=== PATIENT | male | born 1940 | race Caucasian/White ===

== ENCOUNTER 2017-01-01 03:41 | Emergency (ER) | payer MEDICARE ==
[~2017-01-01] VITALS: Ht 182.9 cm; Wt 97.5 kg
[2017-01-01 04:30] VITALS: BP 130/85
== END 2017-01-01 05:20 | disposition home or self-care (01) ==
LOC: ER 03:41
DX: T78.40XA Allergy, unspecified, initial encounter (principal); E11.9 Type 2 diabetes mellitus without complications; I10 Essential (primary) hypertension; F17.210 Nicotine dependence, cigarettes, uncomplicated; Z88.8 Allergy status to other drugs, medicaments and biological substances

== ENCOUNTER 2019-04-12 21:55 | Inpatient (IN) | payer MEDICARE, OTHER ==
[~2019-04-12] VITALS: Ht 185.4 cm; Wt 84.7 kg
[~2019-04-12 21:55] MED LIST: BENA20TA14 PO; GABA-339 PO; GLYB5TAB8 PO; METF-370 PO; METO-159 PO; NORT25CA PO; OMEP20TA PO
[2019-04-12 23:01] LABS: Basophils # (auto) 0.2 uL; Eosinophils # (auto) 0.1 uL; Eosinophils % (auto) 0.6 % (0.0-7.0); Hematocrit 39.2 % (41.0-53.0); Hemoglobin 12.9 g/dL (13.5-17.5); Lymphocytes # (auto) 1.7 uL; Lymphocytes % (auto) 15.6 % (10.0-50.0); Mean Corpuscular Hemoglobin 27.8 pg (28.0-32.0); Mean Corpuscular Hgb Conc. 32.8 g/dL (32.0-36.0); Mean Corpuscular Volume 84.8 fL (80.0-100.0); Monocytes # (auto) 0.6 uL; Monocytes % (auto) 5.9 % (0.0-12.0); Neutrophils # (auto) 8.4 uL; Neutrophils % (auto) 75.9 % (37.0-80.0); Platelet Count (auto) 283 10^3/uL (140-450); Red Blood Cells 4.63 10^6/uL (4.5-5.90); Red Cell Distribution Width 14.9 % (11.8-14.3); White Blood Cell 11.1 10^3/uL (4.4-10.8)
[2019-04-12 23:34] LABS: Albumin 2.8 g/dL (3.4-5.0); Anion Gap 6 (5-15); Blood Urea Nitrogen 20 mg/dL (7-18); Carbon Dioxide 27 mmol/L (21-32); Chloride 105 mmol/L (98-107); Potassium 4.1 mmol/L (3.5-5.1); Sodium 138 mmol/L (136-145)
[2019-04-12 23:42] LABS: Alanine Aminotransferase 46 U/L (16-61); Alkaline Phosphatase 83 U/L (45-117); Aspartate Aminotransferase 30 U/L (15-37); BUN/Creatinine Ratio 21.1; Bilirubin, Total 0.6 mg/dL (0.2-1.0); GFR African American 99 mL/min; GFR Non-African American 81 mL/min; Glucose 145 mg/dL (74-106); Total Protein 7.3 g/dL (6.4-8.2)
[2019-04-13] MEDS ORDERED: DEXTROSE (50%) 50ML SYRG IV PRN (10:30)
[2019-04-13] MEDS ORDERED: SODIUM CHLORIDE 0.9% 1,000 ML IV ONE (10:30)
[2019-04-13] MEDS ORDERED: ONDANSETRON HCL 4 MG/2 ML VIAL IV PRN (10:30)
[2019-04-13] MEDS ORDERED: NITROGLYCERIN 0.4 MG SL TAB SL PRN (10:30)
[2019-04-13] MEDS ORDERED: ACETAMINOPHEN 500 MG TAB PO PRN (10:30)
[2019-04-13] MEDS ORDERED: MORPHINE SULF INJ 2 MG/ML SYRINGE 1ML IV PRN (10:30)
[2019-04-13 10:55] LABS: Urine Bacteria NONE SEEN /hpf (None Seen); Urine Blood Negative /uL (Negative); Urine Mucus FEW (None Seen); Urine Specific Gravity 1.029 (1.001-1.035); Urine WBC 13 /hpf (0 - 3)
[2019-04-13] MEDS ORDERED: ASPirin-EC 81 mg tab PO ONE (11:00)
[2019-04-13] MEDS ORDERED: LISINOPRIL 5 MG TAB PO ONE (11:00)
[2019-04-13] MEDS ORDERED: CLOPIDOGREL BISULFATE 75 MG TAB PO ONE (11:00)
[2019-04-13] MEDS ORDERED: FAMOTIDINE 20 MG TAB PO ONE (11:00)
[2019-04-13] MEDS ORDERED: METOPROLOL TARTRATE 25 MG TAB PO ONE (11:00)
[2019-04-13] MEDS: InsuLIN REG 1unit/0.01ml Soln (100units/ml) SC SCH ×3 (11:30→21:37)
[2019-04-13] MEDS: ACCU-CHEK COMFORT CURVE STRIP VI SCH ×3 (11:32→21:37)
[2019-04-13] MEDS: cefTRIAXone 1GM/50ML D5W 50 ML IV SCH (11:48)
[2019-04-13] MEDS: SILDENAFIL CITRATE 20 MG TAB PO SCH ×2 (14:17→19:50)
--- NOTE | 2019-04-13 17:00 | NUR ---
Telemetry admit from ER JERSON HOPSON admitted to Telemetry unit after SBAR received. Patient oriented to ROMERO STARK RN primary RN, unit, room, bed, and unit policies regarding patient care and visiting hours. Sitter is at bedside for 24 hour monitoring and care. Patient now on continuous telemetry monitoring, tele box # 65 and telemetry reading on arrival to unit is normal sinus rhythm at 98 bpm. Patient weighed by bed scale and encouraged to call if they need something. All questions and concerns addressed, patient verbalized understanding to the best of his ability.
[2019-04-13 17:25] VITALS: BP 127/77
--- NOTE | 2019-04-13 19:50 | NUR ---
RECEIVED PATIENT FROM DAY SHIFT RN. PATIENT RESTING IN BED. NO S/S OF DISTRESS NOTED. DENIED PAIN FOR NOW. REORIENTED PATIENT FOR SITUATION. ORAL MEDICATION GIVEN ORDERED. PATIENT SWALLOWED WELL. NO S/S OF ASPIRATION NOTED. REPOSITIONED PATIENT TO COMFORT. POC INSTRUCTED AND ENCOURAGED PATIENT TO CALL FOR SOLAR FIELD INSTALLATION CREW MEMBER IF NEEDED. BED IN LOWEST POSITION WITH SIDE RAILS UP X 2. CALL REID WITHIN REACH. ALARM ON. SITTER AT BEDSIDE FOR SAFETY. CONTINUE TO MONITOR FOR CHANGES Q1H AND PRN.
--- NOTE | 2019-04-13 19:53 | NUR ---
MRSA SWAB COLLECTED AND SENT. CONTINUE TO MONITOR.
[2019-04-13 21:00] VITALS: BP 107/67
[2019-04-13] MEDS: METOPROLOL TARTRATE 25 MG TAB PO SCH (21:37)
--- NOTE | 2019-04-13 21:38 | NUR ---
ACCU-CHECK, BS 86. NO COVERAGE. ENCOURAGED PATIENT TO DRINK JUICY TO INCREASE BS. CONTINUE TO MONITOR.
[2019-04-13 23:50] VITALS: BP 113/66
--- NOTE | 2019-04-14 02:22 | NUR ---
PATIENT SLEEPING. NO S/S OF DISTRESS NOTED. CONTINUE CARE.
[2019-04-14 04:49] VITALS: BP 107/70
[2019-04-14 06:07] LABS: Basophils # (auto) 0.1 uL; Basophils % (auto) 0.8 % (0.0-2.0); Eosinophils # (auto) 0.2 uL; Eosinophils % (auto) 2.1 % (0.0-7.0); Hematocrit 36.3 % (41.0-53.0); Hemoglobin 12.1 g/dL (13.5-17.5); Lymphocytes # (auto) 1.5 uL; Lymphocytes % (auto) 19.6 % (10.0-50.0); Mean Corpuscular Hemoglobin 28.3 pg (28.0-32.0); Mean Corpuscular Hgb Conc. 33.4 g/dL (32.0-36.0); Mean Corpuscular Volume 84.9 fL (80.0-100.0); Monocytes # (auto) 0.6 uL; Monocytes % (auto) 7.4 % (0.0-12.0); Neutrophils # (auto) 5.4 uL; Neutrophils % (auto) 70.1 % (37.0-80.0); Platelet Count (auto) 266 10^3/uL (140-450); Red Blood Cells 4.27 10^6/uL (4.5-5.90); Red Cell Distribution Width 15.3 % (11.8-14.3); White Blood Cell 7.8 10^3/uL (4.4-10.8)
[2019-04-14 06:42] LABS: Potassium 3.9 mmol/L (3.5-5.1)
[2019-04-14] MEDS: InsuLIN REG 1unit/0.01ml Soln (100units/ml) SC SCH ×4 (06:42→22:00)
[2019-04-14] MEDS: ACCU-CHEK COMFORT CURVE STRIP VI SCH ×4 (06:42→22:00)
--- NOTE | 2019-04-14 06:43 | NUR ---
ACCU-CHECK, BS 124. NO COVERAGE. CONTINUE TO MONITOR.
[2019-04-14 06:48] LABS: BUN/Creatinine Ratio 17.1; Calcium 8.7 mg/dL (8.5-10.1)
--- NOTE | 2019-04-14 08:00 | NUR ---
REPORT RECEIVED FROM SHARLA GONZALEZ.
--- NOTE | 2019-04-14 08:15 | NUR ---
Opening Shift Note Assumed care of patient, awake and alert x3. No S/S of distress/SOB or pain. Instructed on POC and to call for assist PRN, will continue to monitor. Bed locked in the lowest position. Bed rails up x2. Call light in reach. Sitter at the bedside for safety.
[2019-04-14] MEDS: SILDENAFIL CITRATE 20 MG TAB PO SCH ×3 (08:51→22:26)
[2019-04-14] MEDS: cefTRIAXone 1GM/50ML D5W 50 ML IV SCH ×2 (08:51→08:52)
[2019-04-14 09:05] VITALS: BP 127/72
[2019-04-14] MEDS: ASPirin-EC 81 mg tab PO SCH (10:55)
[2019-04-14] MEDS: LISINOPRIL 5 MG TAB PO SCH (10:56)
[2019-04-14] MEDS: CLOPIDOGREL BISULFATE 75 MG TAB PO SCH (10:56)
[2019-04-14] MEDS: FAMOTIDINE 20 MG TAB PO SCH (10:56)
[2019-04-14] MEDS: METOPROLOL TARTRATE 25 MG TAB PO SCH ×2 (10:57→22:00)
--- NOTE | 2019-04-14 11:45 | NUR ---
PATIENTS WRIST BAND NOT SCANNING. BLOOD GLUCOSE OF 163. MEDICATED PER MD ORDER.
[2019-04-14] MEDS: HYDROcodone-ACET 5/325MG TAB PO PRN (11:56)
[2019-04-14 13:00] VITALS: BP 102/69
--- NOTE | 2019-04-14 15:47 | NUR ---
MED REQUEST PATIENT REQUESTING MEDICATION OF BACLOFEN. PATIENT STATES, "I WAS GETTING BACLOFEN BEFORE AND THAT REALLY HELPED WITH MY CHRONIC BACK PAIN. CAN YOU ASK THE DOCTOR IF I CAN GET AN ORDER FOR THAT." DR. GONZALEZ AWARE OF PATIENTS REQUEST. NEW ORDER RECEIVED. ORDER READ BACK AND VERIFIED.
[2019-04-14] MEDS: BACLOFEN 10 MG TAB PO PRN (16:55)
[2019-04-14] MEDS: Ensure HIGH Protein Chocolate 8oz Bottle PO SCH (16:57)
[2019-04-14 17:00] VITALS: BP 119/79
--- NOTE | 2019-04-14 19:00 | NUR ---
Closing Note Patient is awake and alert x3. No S/S of distress/SOB or pain. Bed locked in the lowest position. Bed rails up x2. Call light in reach. Sitter at the bedside for safety. Endorsed care to night nurse.
[2019-04-14 20:00] VITALS: BP 110/62
[2019-04-14 22:00] VITALS: BP 110/74
--- NOTE | 2019-04-15 02:00 | NUR ---
PT TURNING SELF; AND PERIODICALLY TRYING TO KICK STAFF. INTERMITTENT PERIODS OF CALM WHEN PT SPORADICALLY FALLS ASLEEP;VITAL SIGNS STABLE; SITTER AT BEDSIDE SIDERAILS UP.
[2019-04-15 05:00] VITALS: BP 137/78
[2019-04-15] MEDS: InsuLIN REG 1unit/0.01ml Soln (100units/ml) SC SCH ×4 (06:47→22:07)
[2019-04-15] MEDS: ACCU-CHEK COMFORT CURVE STRIP VI SCH ×4 (06:47→22:08)
[2019-04-15 07:20] LABS: Basophils # (auto) 0.1 uL; Basophils % (auto) 1.7 % (0.0-2.0); Eosinophils # (auto) 0.1 uL; Eosinophils % (auto) 0.8 % (0.0-7.0); Hematocrit 37.9 % (41.0-53.0); Hemoglobin 12.8 g/dL (13.5-17.5); Lymphocytes # (auto) 1.3 uL; Lymphocytes % (auto) 16.3 % (10.0-50.0); Mean Corpuscular Hemoglobin 28.5 pg (28.0-32.0); Mean Corpuscular Hgb Conc. 33.7 g/dL (32.0-36.0); Mean Corpuscular Volume 84.6 fL (80.0-100.0); Monocytes # (auto) 0.5 uL; Monocytes % (auto) 6.7 % (0.0-12.0); Neutrophils # (auto) 6.1 uL; Neutrophils % (auto) 74.5 % (37.0-80.0); Nucleated Red Blood Cells % 0.1 %; Platelet Count (auto) 278 10^3/uL (140-450); Red Blood Cells 4.47 10^6/uL (4.5-5.90); Red Cell Distribution Width 15.1 % (11.8-14.3); White Blood Cell 8.2 10^3/uL (4.4-10.8)
[2019-04-15 07:39] LABS: Potassium 3.7 mmol/L (3.5-5.1)
[2019-04-15 07:46] LABS: BUN/Creatinine Ratio 17.5; Calcium 8.9 mg/dL (8.5-10.1)
[2019-04-15 09:00] VITALS: BP 141/81
[2019-04-15] MEDS: HYDROcodone-ACET 5/325MG TAB PO PRN (09:02)
[2019-04-15] MEDS: cefTRIAXone 1GM/50ML D5W 50 ML IV SCH (09:02)
[2019-04-15] MEDS: SILDENAFIL CITRATE 20 MG TAB PO SCH ×3 (09:02→20:47)
[2019-04-15] MEDS: FAMOTIDINE 20 MG TAB PO SCH (09:03)
[2019-04-15] MEDS: ASPirin-EC 81 mg tab PO SCH (09:04)
[2019-04-15] MEDS: METOPROLOL TARTRATE 25 MG TAB PO SCH ×2 (09:04→22:08)
[2019-04-15] MEDS: CLOPIDOGREL BISULFATE 75 MG TAB PO SCH (09:04)
[2019-04-15] MEDS: LISINOPRIL 5 MG TAB PO SCH (09:05)
[2019-04-15] MEDS: Ensure HIGH Protein Chocolate 8oz Bottle PO SCH ×3 (09:07→18:26)
[2019-04-15 13:00] VITALS: BP 110/68
[2019-04-15 17:00] VITALS: BP 107/67
--- NOTE | 2019-04-15 19:13 | NUR ---
Opening Shift Note Assumed care of patient, awake and alert x4. No S/S of distress/SOB or pain. Call light is within reach, side rails up x2, bed is in lowest position. Sitter is at bedside for safety. Instructed on POC and to call for assist PRN, will continue to monitor for changes Q1hr and PRN.
[2019-04-15 21:52] VITALS: BP 111/78
[2019-04-16] VITALS (7 sets, daily range): BP systolic 102–141; BP diastolic 62–87
[2019-04-16] MEDS: InsuLIN REG 1unit/0.01ml Soln (100units/ml) SC SCH ×4 (06:26→21:27)
[2019-04-16] MEDS: ACCU-CHEK COMFORT CURVE STRIP VI SCH ×4 (06:26→21:27)
[2019-04-16 06:38] LABS: Basophils # (auto) 0.1 uL; Basophils % (auto) 1.8 % (0.0-2.0); Eosinophils # (auto) 0.1 uL; Hematocrit 37.6 % (41.0-53.0); Hemoglobin 12.5 g/dL (13.5-17.5); Lymphocytes # (auto) 1.3 uL; Mean Corpuscular Hemoglobin 28.4 pg (28.0-32.0); Mean Corpuscular Hgb Conc. 33.4 g/dL (32.0-36.0); Mean Corpuscular Volume 85.2 fL (80.0-100.0); Monocytes # (auto) 0.6 uL; Monocytes % (auto) 7.3 % (0.0-12.0); Neutrophils % (auto) 73.9 % (37.0-80.0); Platelet Count (auto) 292 10^3/uL (140-450); Red Blood Cells 4.41 10^6/uL (4.5-5.90); Red Cell Distribution Width 15.3 % (11.8-14.3); White Blood Cell 8.1 10^3/uL (4.4-10.8)
[2019-04-16 07:13] LABS: BUN/Creatinine Ratio 17.3; Calcium 8.7 mg/dL (8.5-10.1); Potassium 3.7 mmol/L (3.5-5.1)
--- NOTE | 2019-04-16 07:15 | NUR ---
Endorsed care to Fausto GONZALEZ.
[2019-04-16] MEDS: cefTRIAXone 1GM/50ML D5W 50 ML IV SCH (11:19)
[2019-04-16] MEDS: CLOPIDOGREL BISULFATE 75 MG TAB PO SCH (11:19)
[2019-04-16] MEDS: SILDENAFIL CITRATE 20 MG TAB PO SCH ×3 (11:19→21:26)
[2019-04-16] MEDS: FAMOTIDINE 20 MG TAB PO SCH (11:20)
[2019-04-16] MEDS: METOPROLOL TARTRATE 25 MG TAB PO SCH ×2 (11:20→21:38)
[2019-04-16] MEDS: LISINOPRIL 5 MG TAB PO SCH (11:21)
[2019-04-16] MEDS: ASPirin-EC 81 mg tab PO SCH (11:21)
[2019-04-16] MEDS: Ensure HIGH Protein Chocolate 8oz Bottle PO SCH ×3 (11:22→18:24)
[2019-04-16] MEDS: BACLOFEN 10 MG TAB PO PRN (21:27)
[2019-04-17] VITALS (7 sets, daily range): BP systolic 103–133; BP diastolic 63–91
[2019-04-17] MEDS: InsuLIN REG 1unit/0.01ml Soln (100units/ml) SC SCH ×3 (06:15→17:55)
[2019-04-17] MEDS: ACCU-CHEK COMFORT CURVE STRIP VI SCH ×3 (06:15→17:56)
[2019-04-17 07:54] LABS: Basophils # (auto) 0.1 uL; Basophils % (auto) 0.5 % (0.0-2.0); Eosinophils # (auto) 0.1 uL; Eosinophils % (auto) 0.5 % (0.0-7.0); Hematocrit 38.5 % (41.0-53.0); Hemoglobin 12.8 g/dL (13.5-17.5); Lymphocytes % (auto) 8.4 % (10.0-50.0); Mean Corpuscular Hemoglobin 28.6 pg (28.0-32.0); Mean Corpuscular Hgb Conc. 33.2 g/dL (32.0-36.0); Mean Corpuscular Volume 86.1 fL (80.0-100.0); Monocytes # (auto) 0.7 uL; Monocytes % (auto) 6.4 % (0.0-12.0); Neutrophils # (auto) 9.7 uL; Neutrophils % (auto) 84.2 % (37.0-80.0); Platelet Count (auto) 300 10^3/uL (140-450); Red Blood Cells 4.47 10^6/uL (4.5-5.90); Red Cell Distribution Width 15.9 % (11.8-14.3); White Blood Cell 11.6 10^3/uL (4.4-10.8)
[2019-04-17 08:01] LABS: Albumin 2.7 g/dL (3.4-5.0); BUN/Creatinine Ratio 16.3; Calcium 8.9 mg/dL (8.5-10.1); Potassium 3.9 mmol/L (3.5-5.1)
[2019-04-17 08:04] LABS: Bilirubin, Total 0.7 mg/dL (0.2-1.0); Total Protein 7.3 g/dL (6.4-8.2)
[2019-04-17] MEDS: SILDENAFIL CITRATE 20 MG TAB PO SCH ×3 (08:17→20:05)
[2019-04-17] MEDS: Ensure HIGH Protein Chocolate 8oz Bottle PO SCH ×3 (08:17→17:38)
[2019-04-17] MEDS: cefTRIAXone 1GM/50ML D5W 50 ML IV SCH (08:17)
[2019-04-17] MEDS: CLOPIDOGREL BISULFATE 75 MG TAB PO SCH (09:30)
[2019-04-17] MEDS: METOPROLOL TARTRATE 25 MG TAB PO SCH (09:30)
[2019-04-17] MEDS: LISINOPRIL 5 MG TAB PO SCH (09:30)
[2019-04-17] MEDS: FAMOTIDINE 20 MG TAB PO SCH (09:30)
[2019-04-17] MEDS: ASPirin-EC 81 mg tab PO SCH (09:31)
--- NOTE | 2019-04-17 09:45 | NUR ---
Assessment Pt is a 78 year old confused and disoriented male. Pt was oriented to Place, date, Name, and President but couldn't remember where he lived or his 's name. Pt was admitted due to a fall and a bad hemorrhage that resulted in a stroke. Pt was unable to answer basic questions about DME, Primary care physician, and functioning level. ELIGIO found out from that pt lived at [facility] prior to admit. ELIGIO called [facility] and talked with staff about the pt. ELIGIO found out that pt had been at [facility] for 10 days for Rehab and PT. Pt has a delivery man who is the pt's POA and can be contacted at [phone]. ELIGIO called Анна and asked questions about the pt. Анна stated that prior to living at [facility], pt lived with her and she provided care giving services including cooking, cleaning, etc. JOYCE stated that she decided that pt will go back to [facility] to complete rehab. JOYCE informed that pt has had signs of dementia for a while but has not had a successful outcome when trying to get him in for an apt with his primary dr. Pt has a Primary doctor at the [facility] in [place]. JOYCE stated that she can give the pt a ride, if need be. Pt will be d/c to [facility] per JOYCE's decision. Addendum: 04/17/19 at 0958 by OPAL GARCÍA SS Amended: Links added.
--- NOTE | 2019-04-17 17:05 | NUR ---
Discharge planning per consult has order for SNF placement. Referral faxed to [facility] as patient was a patient there previously, follow up call with Liliana advised that patient is able to return and will be going to room [address] Tee. [facility] and they are scheduled to pick the patient up at 10pm. Nurse advised of dc plan. Addendum: 04/18/19 at 0829 by GURJIT LLOYD Amended: Links added.
--- NOTE | 2019-04-17 19:30 | NUR ---
OPENING SHIFT NOTE RECEIVED REPORT FROM DAYSHIFT RN. PATIENT LYING IN BED. NO S/S OF DISTRESS OR SOB. NO PAIN NOTED OR REPORTED. PATIENT A/O X3, BEDREST. PATIENT UPDATED ON POC AND PENDING TRANSFER TO [facility], VERBALIZED UNDERSTANDING. BED LOCKED IN LOW POSITION, CALL LIGHT WITHIN REACH. WILL CONTINUE TO MONITOR PATIENT Q1HR AND PRN.
--- NOTE | 2019-04-17 22:10 | NUR ---
PATIENT DISCHARGED TO [facility] Discharge instructions given as ordered. All questions and concerns addressed. Patient verbalized understanding. IV removed with catheter intact, pressure dressing applied, TELE MONITOR SENT BACK TO [employer] [facility]INT[facility] ROOM. Medication reconciliation form completed and copy given to patient. Telemetry unit returned to ICU. Report given to DONA at [facility]. Patient transported with all personal belongings. No distress noted at time of departure.
== END 2019-04-17 22:10 | DRG 91 ==
LOC: ER 21:55 → TELE 21:56 → TELE-WESTW 04-13 16:56
PROVIDERS: ADMIT Nurse Practitioner Acute Care; ATTEND Internal Medicine
DX: G92 Toxic encephalopathy (principal); N17.0 Acute kidney failure with tubular necrosis; E44.0 Moderate protein-calorie malnutrition; I50.22 Chronic systolic (congestive) heart failure; F23 Brief psychotic disorder; I13.0 Hypertensive heart and chronic kidney disease with heart failure and stage 1 through stage 4 chronic kidney disease, or unspecified chronic kidney disease; I69.354 Hemiplegia and hemiparesis following cerebral infarction affecting left non-dominant side; N39.0 Urinary tract infection, site not specified; I27.20 Pulmonary hypertension, unspecified; E78.5 Hyperlipidemia, unspecified; I25.10 Atherosclerotic heart disease of native coronary artery without angina pectoris; Z95.5 Presence of coronary angioplasty implant and graft; D72.829 Elevated white blood cell count, unspecified; E11.21 Type 2 diabetes mellitus with diabetic nephropathy; E11.40 Type 2 diabetes mellitus with diabetic neuropathy, unspecified; E11.22 Type 2 diabetes mellitus with diabetic chronic kidney disease; N18.9 Chronic kidney disease, unspecified; Z88.8 Allergy status to other drugs, medicaments and biological substances; Z68.24 Body mass index [BMI] 24.0-24.9, adult; D63.8 Anemia in other chronic diseases classified elsewhere; I25.2 Old myocardial infarction; I27.21 Secondary pulmonary arterial hypertension; I69.393 Ataxia following cerebral infarction; K21.9 Gastro-esophageal reflux disease without esophagitis; M25.78 Osteophyte, vertebrae; M46.90 Unspecified inflammatory spondylopathy, site unspecified; M48.02 Spinal stenosis, cervical region; M53.82 Other specified dorsopathies, cervical region; Y93.89 Activity, other specified; W06.XXXA Fall from bed, initial encounter; Y92.003 Bedroom of unspecified non-institutional (private) residence as the place of occurrence of the external cause; Y99.8 Other external cause status; S16.1XXA Strain of muscle, fascia and tendon at neck level, initial encounter; S70.01XA Contusion of right hip, initial encounter; Z79.899 Other long term (current) drug therapy; Z82.0 Family history of epilepsy and other diseases of the nervous system
CPT/HCPCS: 36415; 70450; 72125; 73502; 80048; 80053; 81001; 82533; 82962; 83036; 84443; 84484; 85025; 87081; 96361; 96365; 97110; 97163; 97530; G0378; J0696; J1815; J2405

== ENCOUNTER 2019-04-18 14:10 | Inpatient (IN) | payer MEDICARE, OTHER ==
[~2019-04-18] VITALS: Ht 182.9 cm; Wt 89.6 kg
[2019-04-18 14:46] LABS: Basophils # (auto) 0.1 uL; Basophils % (auto) 1.4 % (0.0-2.0); Eosinophils # (auto) 0.1 uL; Eosinophils % (auto) 0.5 % (0.0-7.0); Hematocrit 38.1 % (41.0-53.0); Hemoglobin 12.8 g/dL (13.5-17.5); Lymphocytes # (auto) 1.2 uL; Lymphocytes % (auto) 11.7 % (10.0-50.0); Mean Corpuscular Hemoglobin 28.4 pg (28.0-32.0); Mean Corpuscular Hgb Conc. 33.7 g/dL (32.0-36.0); Mean Corpuscular Volume 84.2 fL (80.0-100.0); Monocytes # (auto) 0.7 uL; Monocytes % (auto) 6.7 % (0.0-12.0); Neutrophils # (auto) 8.4 uL; Neutrophils % (auto) 79.7 % (37.0-80.0); Platelet Count (auto) 306 10^3/uL (140-450); Red Blood Cells 4.53 10^6/uL (4.5-5.90); Red Cell Distribution Width 15.1 % (11.8-14.3); White Blood Cell 10.6 10^3/uL (4.4-10.8)
[2019-04-18 15:06] LABS: Alanine Aminotransferase 19 U/L (16-61); Albumin 2.5 g/dL (3.4-5.0); Anion Gap 11 (5-15); Aspartate Aminotransferase 11 U/L (15-37); BUN/Creatinine Ratio 22.7; Blood Urea Nitrogen 17 mg/dL (7-18); Calcium 8.8 mg/dL (8.5-10.1); Carbon Dioxide 21 mmol/L (21-32); Chloride 103 mmol/L (98-107); GFR African American 130 mL/min; GFR Non-African American 107 mL/min; Glucose 210 mg/dL (74-106); Magnesium 1.6 mg/dL (1.6-2.6); Potassium 3.9 mmol/L (3.5-5.1); Sodium 135 mmol/L (136-145)
[2019-04-18 15:11] LABS: Alkaline Phosphatase 85 U/L (45-117); Bilirubin, Total 0.7 mg/dL (0.2-1.0); Total Protein 7.1 g/dL (6.4-8.2)
[2019-04-18 20:20] LABS: Urine Bacteria NONE SEEN /hpf (None Seen); Urine Blood 3+ /uL (Negative); Urine Mucus FEW (None Seen); Urine Specific Gravity 1.027 (1.001-1.035); Urine WBC 13 /hpf (0 - 3)
[2019-04-18] MEDS ORDERED: DEXTROSE (50%) 50ML SYRG IV PRN (21:00)
[2019-04-18] MEDS ORDERED: MORPHINE SULF INJ 2 MG/ML SYRINGE 1ML IV PRN (21:00)
[2019-04-18] MEDS ORDERED: NITROGLYCERIN 0.4 MG SL TAB SL PRN (21:00)
[2019-04-18] MEDS ORDERED: cefTRIAXone 1GM/50ML D5W 50 ML IV ONE (21:00)
[2019-04-18] MEDS: SODIUM CHLORIDE 0.9% 1,000 ML IV SCH (21:18)
[2019-04-18] MEDS: InsuLIN REG 1unit/0.01ml Soln (100units/ml) SC SCH (22:00)
[2019-04-18] MEDS: FAMOTIDINE 20 MG TAB PO SCH (22:28)
[2019-04-18] MEDS: ACCU-CHEK COMFORT CURVE STRIP VI SCH (22:28)
[2019-04-18] MEDS: ATORVASTATIN 20 MG TAB PO SCH (22:28)
[2019-04-19] VITALS (7 sets, daily range): BP systolic 120–134; BP diastolic 69–92
--- NOTE | 2019-04-19 00:34 | NUR ---
Telemetry admit from ER JERSON HOPSON admitted to Telemetry unit after SBAR received. Patient oriented to Wei Regalado, primary RN, unit, room, bed, and unit policies regarding patient care and visiting hours. Patient now on continuous telemetry monitoring, tele box # [32] and telemetry reading on arrival to unit is [SR 92]. Patient weighed by bedscale and encouraged to call if they need something. All questions and concerns addressed, patient verbalized understanding. Note: PATIENT CONFUSED. ORIENTED PATIENT TIME, PLACE, AND SITUATION. PATIENT COULD VERBALIZE UNDERSTANDING. SITTER AT BEDSIDE FOR SAFETY. CONTINUE CARE.
--- NOTE | 2019-04-19 02:36 | NUR ---
REPOSITIONED PATIENT. PATIENT TOLERATED WELL. CONTINUE CARE.
--- NOTE | 2019-04-19 05:40 | NUR ---
MRSA SWAB COLLECTED AND SENT. CONTINUE TO MONITOR.
[2019-04-19 06:16] LABS: Basophils # (auto) 0.1 uL; Basophils % (auto) 1.1 % (0.0-2.0); Eosinophils # (auto) 0.1 uL; Hematocrit 36.4 % (41.0-53.0); Hemoglobin 11.6 g/dL (13.5-17.5); Lymphocytes # (auto) 1.2 uL; Lymphocytes % (auto) 17.9 % (10.0-50.0); Mean Corpuscular Hemoglobin 28.4 pg (28.0-32.0); Mean Corpuscular Hgb Conc. 31.9 g/dL (32.0-36.0); Mean Corpuscular Volume 88.9 fL (80.0-100.0); Monocytes # (auto) 0.5 uL; Monocytes % (auto) 7.1 % (0.0-12.0); Neutrophils % (auto) 71.9 % (37.0-80.0); Nucleated Red Blood Cells % 0.1 %; Platelet Count (auto) 246 10^3/uL (140-450); Red Cell Distribution Width 15.6 % (11.8-14.3); White Blood Cell 6.9 10^3/uL (4.4-10.8)
[2019-04-19] MEDS: InsuLIN REG 1unit/0.01ml Soln (100units/ml) SC SCH ×4 (06:18→21:56)
[2019-04-19] MEDS: ACCU-CHEK COMFORT CURVE STRIP VI SCH ×4 (06:18→21:47)
--- NOTE | 2019-04-19 06:19 | NUR ---
ACCU-CHECK, BS 130. NO COVERAGE. CONTINUE TO MONITOR.
[2019-04-19 06:27] LABS: Calcium 8.5 mg/dL (8.5-10.1); Potassium 3.6 mmol/L (3.5-5.1)
[2019-04-19 06:30] LABS: BUN/Creatinine Ratio 23.6
--- NOTE | 2019-04-19 07:45 | NUR ---
Opening Shift Note Assumed care of patient, asleep but easily aroused. No S/S of distress/SOB or pain. Instructed on POC and to call for assist PRN, will continue to monitor for changes Q1hr and PRN. Sitter at bedside.
[2019-04-19] MEDS: cefTRIAXone 1GM/50ML D5W 50 ML IV SCH (09:29)
[2019-04-19] MEDS: ASPirin 81 mg TAB PO SCH (09:30)
[2019-04-19] MEDS: CLOPIDOGREL BISULFATE 75 MG TAB PO SCH (09:31)
[2019-04-19] MEDS: FAMOTIDINE 20 MG TAB PO SCH ×2 (09:31→21:47)
--- NOTE | 2019-04-19 10:00 | NUR ---
Phone call received from patient's granddaughter who states she is the POA for the patient and she would like to receive status update on the patient. No password seen for this current admission, looked at prior admission and no password seen either. Informed granddaughter that due to HIPPA regulations I am unable to speak with her on phone regarding her family member. She notified me that everyone else was able to talk with her and she set up password on admission. She informed me that she would be visiting patient later today and I encouraged her to work on setting up password during visit.
--- NOTE | 2019-04-19 11:40 | NUR ---
Password As per sitter in room, the patient notified her that the password is Cuddles. Same was confirmed with the patient.
[2019-04-19] MEDS: Glucerna Carbsteady SHAKE Vanilla 8oz PO SCH (12:00)
--- NOTE | 2019-04-19 12:30 | NUR ---
Insulin Patient refusing to eat. He refused breakfast and is refusing lunch. Does not want anything to eat or drink even with prompting. Held Insulin. Accu Check was 154.
--- NOTE | 2019-04-19 15:45 | NUR ---
Patient agreed for a student nurse to interview him. During the interview the patient informed the student that he is refusing to eat or drink everything because he is not comfortable with the hospital. According to the sitter he does not have trust and the hospital withheld medications resulting in him having a stroke.
--- NOTE | 2019-04-19 15:50 | NUR ---
Request for Transfer to [facility] Patient informed me that he has just decided not to eat or drink anything and that he wanted to be transferred to the [facility]. I asked him why he did not mention that to the MD during rounding this morning and he said that he didn't know. I notified patient and family member at bedside that I will notify the MD of request.
--- NOTE | 2019-04-19 16:05 | NUR ---
Phone call with Spoke with Dr. Hayden on the phone and informed him of patients request to be transferred to [facility]. Order for Social Service consult and to have family member speak with social service manager in the morning regarding transfer.
--- NOTE | 2019-04-19 17:40 | NUR ---
Granddaughter Visit Granddaughter at bedside, information was given regarding the request for transfer to the [facility] and contact information for Alee Le. She began to curse how she found it disrespectful that she has been calling all morning and RN did not return her phone call and that everyone else was able to provide information over the phone and found a copy of the POA so she can't understand why I could not see the information. I tried to explain to the granddaughter, however, she did not want to hear anything from RN and she does not want to see RN again. RN said thank you and left room.
[2019-04-19] MEDS: SODIUM CHLORIDE 0.9% 1,000 ML IV SCH (18:06)
--- NOTE | 2019-04-19 19:30 | NUR ---
Opening Shift Note Assumed care of patient, awake and alert, sitter at bedside for safety. No S/S of distress/SOB or pain. Instructed on POC and to call for assist PRN, will continue to monitor for changes Q1hr and PRN.
[2019-04-19] MEDS: ATORVASTATIN 20 MG TAB PO SCH (21:47)
--- NOTE | 2019-04-19 21:50 | NUR ---
PATIENT C/O PAIN TO LEFT KNEE 5/10 AND RIGHT HIP PAIN 8/10. NO PAIN MEDICATION ON ORDERS. WILL CALL MD FOR MEDICATION.
--- NOTE | 2019-04-19 22:00 | NUR ---
MD Called/paged Morgan Gudino NP called re: paint to left knee and right hip . Waiting for call back. Continue care.
--- NOTE | 2019-04-19 22:50 | NUR ---
returned call Morgan Gudino NP returned call, updated on patient status and reason for call, orders received. Continue care.
[2019-04-19] MEDS: HYDROcodone-ACET 5/325MG TAB PO PRN (23:52)
[2019-04-20 04:19] VITALS: BP 137/78
--- NOTE | 2019-04-20 04:45 | NUR ---
IV removal IV leaking and catheter bent. IV DC'd with sterile technique, catheter fully intact. Pressure dressing applied to site. Patient tolerated procedure well. New IV will be started.
--- NOTE | 2019-04-20 05:00 | NUR ---
IV insertion IV access obtained, via clean sterile technique by inserting 22 gauge catheter at right forearm after attempt(s). IV secured properly. No trauma to site. Patient tolerated procedure well.
[2019-04-20] MEDS: ACCU-CHEK COMFORT CURVE STRIP VI SCH ×4 (06:30→22:10)
[2019-04-20] MEDS: HYDROcodone-ACET 5/325MG TAB PO PRN (06:30)
[2019-04-20] MEDS: InsuLIN REG 1unit/0.01ml Soln (100units/ml) SC SCH ×4 (06:31→22:11)
--- NOTE | 2019-04-20 07:30 | NUR ---
SHIFT CLOSING NOTE. ENDORSED CARE OF PATIENT TO DAY SHIFT, LISA BAKER.
--- NOTE | 2019-04-20 07:50 | NUR ---
PATIENT ROUNDS PATIENT LYING IN BED, NO DISTRESS NOTED. BED IN LOWEST POSITION, SIDE RAILS UP X2, CALL LIGHT WITHIN REACH. WILL CONTINUE TO MONITOR. SITTER AT BEDSIDE
[2019-04-20] MEDS: Glucerna Carbsteady SHAKE Vanilla 8oz PO SCH ×3 (08:00→18:07)
[2019-04-20 09:00] VITALS: BP 142/107
[2019-04-20] MEDS: cefTRIAXone 1GM/50ML D5W 50 ML IV SCH (09:50)
[2019-04-20] MEDS: SODIUM CHLORIDE 0.9% 1,000 ML IV SCH (09:51)
[2019-04-20] MEDS: CLOPIDOGREL BISULFATE 75 MG TAB PO SCH (09:51)
[2019-04-20] MEDS: ASPirin 81 mg TAB PO SCH (09:51)
[2019-04-20] MEDS: FAMOTIDINE 20 MG TAB PO SCH ×2 (09:51→22:10)
--- NOTE | 2019-04-20 10:28 | NUR ---
I faxed transfer request along with updated clinical information to [facility].
--- NOTE | 2019-04-20 11:20 | NUR ---
1115 04/20/19 I faxed transfer request to [facility]. I called [facility] [phone] and spoke with Rem, she said they have no beds available today, but that we can call back tomorrow to check on bed availability.
--- NOTE | 2019-04-20 11:23 | NUR ---
I spoke with patient to update him on [facility] He gave me permission to speak with/relay information to his grand daughter Nilson Rosenbaum. I called granddaughter Nilson Rosenbaum [phone] to let her know that there were no beds available today for transfer.
[2019-04-20 13:00] VITALS: BP 127/87
[2019-04-20 17:00] VITALS: BP 140/88
--- NOTE | 2019-04-20 19:45 | NUR ---
Opening Shift Note Assumed care of patient, awake and A & O X3. No S/S of distress/SOB or pain. FREEMAN PATENT AND DRAINING TO GRAVITY. BRUISE TO INNER RIGHT THIGH NOTED. BED IN LOWEST POSITION AND LOCKED. CALL REID WITHIN REACH. BED ALARM ON. SITTER AT BEDSIDE. Instructed on POC and to call for assist PRN, will continue to monitor for changes Q1hr and PRN.
[2019-04-20 21:00] VITALS: BP 119/73
[2019-04-20] MEDS: ATORVASTATIN 20 MG TAB PO SCH (22:10)
[2019-04-21 04:31] VITALS: BP 137/81
[2019-04-21] MEDS: InsuLIN REG 1unit/0.01ml Soln (100units/ml) SC SCH ×4 (06:33→22:12)
[2019-04-21] MEDS: ACCU-CHEK COMFORT CURVE STRIP VI SCH ×4 (06:33→22:12)
[2019-04-21 08:00] VITALS: BP 148/87
[2019-04-21] MEDS: Glucerna Carbsteady SHAKE Vanilla 8oz PO SCH ×3 (08:00→18:00)
--- NOTE | 2019-04-21 08:00 | NUR ---
Opening Shift Note Assumed care of patient, awake and alert x3. No S/S of distress/SOB or pain. Bustamante Catheter in place/intact and draining well. Bed at lowest locked position, bed side rails up x2 and call light within reach. Instructed on POC and to call for assist PRN, will continue to monitor for changes Q1hr and PRN. Sitter at bedside for safety.
[2019-04-21 09:00] VITALS: BP 148/87
--- NOTE | 2019-04-21 09:10 | NUR ---
PT Patient refused to be OOB during morning PT visit with c/o pain to penile and discomfort of not able to do BM. Addendum: 04/21/19 at 0912 by KATHY SMITH PTT Amended: Links added.
[2019-04-21] MEDS: CLOPIDOGREL BISULFATE 75 MG TAB PO SCH (09:20)
[2019-04-21] MEDS: FAMOTIDINE 20 MG TAB PO SCH ×2 (09:20→22:12)
[2019-04-21] MEDS: ASPirin 81 mg TAB PO SCH (09:20)
[2019-04-21] MEDS: cefTRIAXone 1GM/50ML D5W 50 ML IV SCH (09:20)
--- NOTE | 2019-04-21 11:00 | NUR ---
Patient had a bed bath by JERMAIN Edmondson. Patient tolerated well.
--- NOTE | 2019-04-21 14:00 | NUR ---
Discharge planning. Paged for Natty Registered Nurse Renal, regarding patient's transfer .
[2019-04-21 17:00] VITALS: BP 144/74
--- NOTE | 2019-04-21 19:38 | NUR ---
End of shift Note Care endorsed to Leslie GONZALEZ. Sitter at bedside for safety.
--- NOTE | 2019-04-21 19:57 | NUR ---
RECEIVED PATIENT FROM DAY SHIFT. PATIENT REST IN BED. NO S/S OF DISTRESS NOTED. DENIED PAIN FOR NOW. PATIENT REFUSED TO HAVE DINNER TONIGHT AND STATED HE'S NOT HUNGRY. ENCOURAGED PATIENT TO DRINK ENSURE AND EAT SOMETHING. PATIENT STATED THAT HE WILL TRY LATER. FREEMAN CATH IN PLACE DRAINING GRAVITY. POC INSTRUCTED AND ENCOURAGED PATIENT TO CALL FOR LEAD LOADER IF NEEDED. BED IN LOWEST POSITION WITH SIDE RAILS UP X 2. CALL REID WITH IN REACH. ALARM ON. SITTER AT BEDSIDE FOR SAFETY. CONTINUE TO MONITOR FOR CHANGES Q1H AND PRN.
--- NOTE | 2019-04-21 21:20 | NUR ---
PATIENT HAD BM. CLEANED PATIENT, PARTIAL LINEN CHANGED. PATIENT TOLERATED WELL. CONTINUE CARE.
[2019-04-21] MEDS: ATORVASTATIN 20 MG TAB PO SCH (22:11)
[2019-04-21] MEDS: DOCUSATE SOD 100 MG CAP PO SCH (22:11)
--- NOTE | 2019-04-21 22:13 | NUR ---
ACCU-CHECK, BS 148. INSULIN GIVEN ORDERED. CONTINUE TO MONITOR.
[2019-04-21 23:18] VITALS: BP 132/85
--- NOTE | 2019-04-21 23:49 | NUR ---
REPOSITIONED PATIENT. PATIENT TOLERATED.WELL. NO S/S OF DISTRESS NOTED SITTER AT BEDSIDE FOR SAFETY. CONTINUE CARE.
--- NOTE | 2019-04-22 02:10 | NUR ---
REPOSITIONED PATIENT. PATIENT TOLERATED.WELL. NO S/S OF DISTRESS NOTED CONTINUE CARE.
[2019-04-22] MEDS: HYDROcodone-ACET 5/325MG TAB PO PRN (04:47)
--- NOTE | 2019-04-22 04:47 | NUR ---
PATIENT C/O PAIN @ 11/24. MEDICATED PATIENT ORDERED. CONTINUE TO MONITOR.
[2019-04-22 05:12] VITALS: BP 143/86
[2019-04-22 06:00] VITALS: BP 123/85
[2019-04-22] MEDS: ACCU-CHEK COMFORT CURVE STRIP VI SCH ×4 (06:42→22:11)
[2019-04-22] MEDS: InsuLIN REG 1unit/0.01ml Soln (100units/ml) SC SCH ×4 (06:42→22:00)
--- NOTE | 2019-04-22 06:42 | NUR ---
ACCU-CHECK, BS 156. INSULIN GIVEN ORDERED. CONTINUE TO MONITOR.
[2019-04-22 08:00] VITALS: BP 123/85
[2019-04-22] MEDS: Glucerna Carbsteady SHAKE Vanilla 8oz PO SCH ×3 (08:00→18:00)
[2019-04-22 09:00] VITALS: BP 123/85
[2019-04-22] MEDS: ASPirin 81 mg TAB PO SCH (09:23)
[2019-04-22] MEDS: cefTRIAXone 1GM/50ML D5W 50 ML IV SCH (09:23)
[2019-04-22] MEDS: DOCUSATE SOD 100 MG CAP PO SCH ×2 (09:24→22:11)
[2019-04-22] MEDS: FAMOTIDINE 20 MG TAB PO SCH ×2 (09:24→22:11)
[2019-04-22] MEDS: CLOPIDOGREL BISULFATE 75 MG TAB PO SCH (09:24)
[2019-04-22] MEDS ORDERED: ENOXAPARIN SOD 40 MG/0.4 ML SYRINGE SC ONE (11:45)
[2019-04-22 12:22] LABS: Basophils # (auto) 0.1 uL; Basophils % (auto) 0.7 % (0.0-2.0); Eosinophils # (auto) 0.1 uL; Eosinophils % (auto) 1.7 % (0.0-7.0); Hematocrit 38.1 % (41.0-53.0); Hemoglobin 12.2 g/dL (13.5-17.5); Lymphocytes # (auto) 1.2 uL; Lymphocytes % (auto) 15.4 % (10.0-50.0); Mean Corpuscular Hemoglobin 27.8 pg (28.0-32.0); Mean Corpuscular Hgb Conc. 32.1 g/dL (32.0-36.0); Mean Corpuscular Volume 86.7 fL (80.0-100.0); Monocytes # (auto) 0.6 uL; Monocytes % (auto) 8.1 % (0.0-12.0); Neutrophils # (auto) 5.7 uL; Neutrophils % (auto) 74.1 % (37.0-80.0); Platelet Count (auto) 214 10^3/uL (140-450); Red Blood Cells 4.39 10^6/uL (4.5-5.90); Red Cell Distribution Width 15.3 % (11.8-14.3); White Blood Cell 7.7 10^3/uL (4.4-10.8)
[2019-04-22 12:33] LABS: BUN/Creatinine Ratio 16.1; Calcium 8.5 mg/dL (8.5-10.1); Potassium 3.4 mmol/L (3.5-5.1)
[2019-04-22 13:00] VITALS: BP 144/90
--- NOTE | 2019-04-22 16:55 | NUR ---
Patients daughter , Анна at bedside. Updated Анна on POC. Patient requesting for home medication Nortriptyline. Will notify
[2019-04-22 17:48] VITALS: BP 132/90
--- NOTE | 2019-04-22 19:22 | NUR ---
END OF SHIFT NOTE PATIENT IS COMFORTABLY RESTING IN BED. BED IN LOWEST LOCKED POSITION AND CALL LIGHT AT BEDSIDE. NO S/S OF SOB/DISTRESS NOTED. SITTER AT BEDSIDE FOR SAFETY. CARE ENDORSE TO LAZARUS GONZALEZ.
--- NOTE | 2019-04-22 20:25 | NUR ---
Opening Shift Note Assumed care of patient post report from Melina GONZALEZ. Patient is awake, alert, and oriented x3, resting in bed comfortably. Denies any pain or distress. RR even and unlabored with equal rise and fall on room air. Patient repositioned in bed to supine position for comfort. HOB elevated greater than 30 degrees. Bed in lowest position, side rails up X2, bed brakes set, bed alarm set. Sitter at bed side. Continue close monitoring.
[2019-04-22] MEDS ORDERED: POTASSIUM EFFERVESENT TAB 25 MEQ PO ONE (21:30)
[2019-04-22] MEDS: ATORVASTATIN 20 MG TAB PO SCH (22:11)
[2019-04-23 04:51] VITALS: BP 132/81
[2019-04-23] MEDS: ACCU-CHEK COMFORT CURVE STRIP VI SCH ×2 (06:25→12:25)
[2019-04-23] MEDS: InsuLIN REG 1unit/0.01ml Soln (100units/ml) SC SCH ×2 (06:26→11:30)
--- NOTE | 2019-04-23 07:29 | NUR ---
CARE ENDORSED TO LATOYA GONZALEZ
--- NOTE | 2019-04-23 08:54 | NUR ---
PT RESTING IN BED NO DISTRESS NOTED. PT REPORTS NO PAIN AT THIS TIME. PT ON BEDPAN. BEDPAN REMOVED, SMALL SMEAR OF BROWN STOOL NOTED. PT CLEANED AND Z GUARD APPLIED TO BOTTOM. PT REPOSITIONED TO SUPINE. 100 MLS CLEAR YELLOW URINE NOTED IN FREEMAN. PT REPOSITIONED TO SUPINE, SITTER AT BEDSIDE. WILL CONTINUE TO MONITOR.
[2019-04-23 09:00] VITALS: BP 131/77
[2019-04-23] MEDS: Glucerna Carbsteady SHAKE Vanilla 8oz PO SCH ×2 (09:54→12:00)
[2019-04-23] MEDS: cefTRIAXone 1GM/50ML D5W 50 ML IV SCH (09:54)
[2019-04-23] MEDS: ASPirin 81 mg TAB PO SCH (09:56)
[2019-04-23] MEDS: CLOPIDOGREL BISULFATE 75 MG TAB PO SCH (09:56)
[2019-04-23] MEDS: DOCUSATE SOD 100 MG CAP PO SCH (09:56)
[2019-04-23] MEDS: FAMOTIDINE 20 MG TAB PO SCH (09:56)
[2019-04-23] MEDS ORDERED: ENOXAPARIN SOD 40 MG/0.4 ML SYRINGE SC SCH (10:00)
--- NOTE | 2019-04-23 11:02 | NUR ---
SPOKE WITH DR KEISHA MD REPORTS THERE ARE NO BEDS AT [facility] SO PATIENT NEEDS REHAB PLACEMENT. PT GRAND DAUGHTER NAILA CALLED AND WAS UPDATED ON POC. GRAND DAUGHTER REPORTS PATIENT HAS TO GO TO [facility], THAT HE WAS TREATED BADLY AT [facility]. NOTIFIED . DR VALDES REPORTS TO NOTIFY MARLYN OLSON. Addendum: 04/23/19 at 1137 by KANWAL TRAN RN DR VALDES REPORTS IF THERE ARE NO BEDS AVAILABLE AT [facility] AND PATIENT DOES NOT WANT SNF REHAB, THEN PATIENT CAN ALSO BE DISCHARGED HOME, AND TO CALL MANAGER FINE.
--- NOTE | 2019-04-23 11:09 | NUR ---
CALLED KATIE DOUGLAS AND NOTIFIED HER GRAND DAUGHTER DOES NOT WANT SNF PLACEMENT, KATIE REPORTS SHE WILL TELL GOLF BALL INSPECTOR.
--- NOTE | 2019-04-23 11:12 | NUR ---
CALLED PBX AND PAGED PHYSICAL THERAPY TO COME WORK WITH PATIENT.
--- NOTE | 2019-04-23 11:46 | NUR ---
I called the [facility] [phone] and spoke with Cayla, he said they have no beds available at this time.
--- NOTE | 2019-04-23 11:51 | NUR ---
RETAIL STORE MANAGER REPORTS PATIENT SPOYvonne Rausch WITH GRAND DAUGHTER ON PHONE AND REPORT GRAND DAUGHTER WILL BE HERE BETWEEN 4 AND 5 PM TO [facility] PATIENT [facility]. NOTIFIED KATIE DOUGLAS. KATIE REPORTS SHE CALLED [facility], STILL NO BEDS AVAILABLE, AND SHE WILL HAVE REVERSE UNIT OPERATOR FISHERMAN GIVE THE GRAND DAUGHTER A CALL AND CLARIFY HER PLANS.
--- NOTE | 2019-04-23 11:52 | NUR ---
PT REFUSED P.T TODAY. NOTIFIED LISA SCHOFIELD. Addendum: 04/23/19 at 1153 by ARLENE ALBA PTT Amended: Links added.
--- NOTE | 2019-04-23 12:05 | NUR ---
SPOKE WITH IMMUNOLOGY SPECIALIST, PT REFUSED BREAKFAST AND LUNCH. ENCOURAGED PT TO EAT. PT REPORTS HE, "JUST DOESN'T WANT TO," AND "I'LL BE ALRIGHT." ENCOURAGED PT TO DRINK HIS GLUCERNA. PT REFUSED. SPOKE WITH DR KEISHA MD REPORTS HE IS DISCHARGING PT HOME AND TO [facility] FREEMAN.
--- NOTE | 2019-04-23 12:18 | NUR ---
BLOOD SUGAR 134. UNABLE TO SCAN ID BRACELET. 0 UNITS GIVEN PATIENT IS NOT EATING.
--- NOTE | 2019-04-23 12:27 | NUR ---
FREEMAN DC'D. 500 MLS ORANGE YELLOW URINE NOTED. 9 MLS FLUID TAKEN FROM BALLOON.
[2019-04-23 13:00] VITALS: BP 124/73
--- NOTE | 2019-04-23 13:52 | NUR ---
assessment Patient is a 78 year old male. Patients caregiver and JOYCE Jj informed me prior to admission patient was at [facility]. Per Анна she wants patient transferred to [facility]. I informed Анна that the caser in has been working on the transfer and the [facility] no beds [facility]. Per Анна she wants patient discharged home. Анна informed me she did not like the care provided at [facility]. Per Анна patient not to return on discharge. Dr Hayden has been notified. Per Анна she will transport patient home on discharge. Addendum: 04/23/19 at 1356 by Alee RODRIGUEZ Amended: Links added.
--- NOTE | 2019-04-23 14:30 | NUR ---
GARMENT EXAMINER REPORTS PT VOIDED MODERATE AMOUNT OF URINE ON CHUCKS, AND CLEANED.
[2019-04-23 14:39] VITALS: BP 124/73
--- NOTE | 2019-04-23 15:53 | NUR ---
NAILA REPORTS SHE WANTS TRANSP[facility] TO [facility]. CALLED MARLYN SS AND MARLYN REPORTS TRANSPORTATION CANNOT BE PROVIDED, WILL UPDATE GRAND DAUGHTER.
[2019-04-23 17:00] VITALS: BP 127/73
--- NOTE | 2019-04-23 18:00 | NUR ---
PT REFUSED DINNER.
--- NOTE | 2019-04-23 18:15 | NUR ---
PT VOIDED SMALL AMOUNT YELLOW URINE ON CHUCKS. PT BREANNA AREA AND SACRUM CLEANED, Z GUARD APPLIED
--- NOTE | 2019-04-23 18:52 | NUR ---
PT AND GRAND DAUGHTER REPORT PATIENT HAS MEDICATIONS IN PHARMACY. NO POM BAND ON PT WRIST OR REMINDER IN CHART. CALLED PHARMACY, PHARMACY REPORTS PT HAS NO MEDICATIONS WITH THEM. ASKED PHARMACIST TO CHECK AGAIN. PHARMACY REPORTS THEY ARE UNABLE TO FIND ANY MEDICATIONS. NOTIFIED PT AND GRAND DAUGHTER. OFFERED TO CALL CHARGE NURSE TO ASSIST. PT AND GRAND DAUGHTER REPORT, "IT'S OKAY, WE ARE GOING STRAIGHT TO THE [facility], AND THEY CAN PRESCRIBE HIM MORE." CALLED PHYSICAL THERAPY TO ASSIST PATIENT TO CAR, PT OFFERED TO HELP EARLIER. AWAITING PHYSICAL THERAPIST TO COME ASSIST PATIENT.
--- NOTE | 2019-04-23 19:00 | NUR ---
CALLED PBX AND PAGED PHYSICAL THERAPY AGAIN. ASKED NANCY GONZALEZ TO ASSIST PATIENT OUT AND CALLED BOWLING BALL GRADER TO HELP. NO BOWLING BALL GRADER AVAILABLE. NANCY GONZALEZ GOING TO ROOM TO ASSIST PT TO CAR.
--- NOTE | 2019-04-23 19:40 | NUR ---
PATIENT DISCHARGED Patient assisted to the car by RN Gary Dyson and myself Henny. Patient was transferred into car safely. The granddaughter that was driving patient to [place] stated that she was okay and could care for the patient from there. All patient's belongings with patient.
--- NOTE | 2019-04-23 19:40 | NUR ---
DISCHARGE NOTE Day shift RN, Stefany has removed patient's IV and tele box. Tele box sent to ICU to monitor techs. Patient's bands also removed by Stefany
== END 2019-04-23 19:40 | disposition home or self-care (01) | DRG 92 ==
LOC: EDBD 14:10 → ER 14:10 → TELE 14:11 → TELE-CENTR 23:28
PROVIDERS: ADMIT Internal Medicine; ATTEND Internal Medicine
DX: G92 Toxic encephalopathy (principal); E44.0 Moderate protein-calorie malnutrition; I50.22 Chronic systolic (congestive) heart failure; I69.354 Hemiplegia and hemiparesis following cerebral infarction affecting left non-dominant side; E11.42 Type 2 diabetes mellitus with diabetic polyneuropathy; E86.0 Dehydration; I10 Essential (primary) hypertension; K21.9 Gastro-esophageal reflux disease without esophagitis; I11.0 Hypertensive heart disease with heart failure; E87.6 Hypokalemia; I25.10 Atherosclerotic heart disease of native coronary artery without angina pectoris; I27.21 Secondary pulmonary arterial hypertension; E78.5 Hyperlipidemia, unspecified; Z68.26 Body mass index [BMI] 26.0-26.9, adult; Z88.8 Allergy status to other drugs, medicaments and biological substances; Z79.02 Long term (current) use of antithrombotics/antiplatelets; Z95.5 Presence of coronary angioplasty implant and graft; Z79.82 Long term (current) use of aspirin
CPT/HCPCS: 36415; 70450; 71045; 80048; 80053; 81001; 82962; 83605; 83735; 84484; 85025; 87040; 87081; 87086; 93005; 97116; 97530; G0378; J0696; J1815